=== PATIENT | male | born 1995 | race Caucasian/White ===

== ENCOUNTER 2019-03-23 04:17 | Emergency (ER) | payer OTHER ==
[2019-03-23] MEDS ORDERED: Cyclobenzaprine 10 MG Tab PO ONE (04:46)
[2019-03-23] MEDS ORDERED: Ibuprofen 600 MG Tab PO ONE (04:46)
--- NOTE | 2019-03-23 04:53 | EDM.PDOC ---
ED HPI GENERAL MEDICAL PROBLEM - General Chief Complaint: General Stated Complaint: face and neck spasms, pain Time Seen by Provider: 03/23/19 04:37 Source of Information: Reports: Patient, Family (parents) History Limitations: Reports: No Limitations - History of Present Illness INITIAL COMMENTS - FREE TEXT/NARRATIVE: Patient presents with neck spasms and head turned to right. He says this started an hour ago. He had been playing video games last evening and had some marijuana. He takes Latuda for bipolar depression. He tried Xanax for this neck spasm but no relief. Treatments ETHICS INSTRUCTOR: Reports: Other (see below) Other Treatments ETHICS INSTRUCTOR: xanax - Related Data Allergies Allergy/AdvReac Type Severity Reaction Status Date / Time sertraline [From Zoloft] Allergy Insomnia Verified 05/19/16 09:27 venlafaxine [From Effexor] Allergy Insomnia Verified 05/19/16 09:27 Home Meds: Home Meds Multivitamin [Multivitamins] 1 tab PO DAILY 08/03/14 [History] ALPRAZolam [Alprazolam] 1 mg PO BID 04/22/16 [History] Escitalopram [Lexapro] 10 mg PO DAILY 04/22/16 [History] OXcarbazepine [Trileptal] 900 mg PO BID 04/22/16 [History] Past Medical History HEENT History: Reports: Impaired Vision, Other (See Below) Other HEENT History: wears glasses Cardiovascular History: Reports: None Respiratory History: Reports: None Gastrointestinal History: Reports: GERD Genitourinary History: Reports: None Musculoskeletal History: Reports: None Neurological History: Reports: Head Trauma Psychiatric History: Reports: Anxiety, Bipolar, Depression, Emotional Problems, Mood Swings, Panic Attack, Suicidal Ideation Endocrine/Metabolic History: Reports: None Hematologic History: Reports: None Immunologic History: Reports: None Oncologic (Cancer) History: Reports: None Dermatologic History: Reports: None - Infectious Disease History Infectious Disease History: Reports: None - Past Surgical History Head Surgeries/Procedures: Reports: None HEENT Surgical History: Reports: Oral Surgery Cardiovascular Surgical History: Reports: None Respiratory Surgical History: Reports: None GI Surgical History: Reports: None Male Surgical History: Reports: None Endocrine Surgical History: Reports: None Neurological Surgical History: Reports: None Musculoskeletal Surgical History: Reports: Other (See Below) Other Musculoskeletal Surgeries/Procedures:: broken arm Oncologic Surgical History: Reports: None Dermatological Surgical History: Reports: None Social & Family History - Family History Family Medical History: Noncontributory - Tobacco Use Smoking Status *Q: Current Every Day Smoker Years of Tobacco use: 5 Packs/Tins Daily: 0.5 Used Tobacco, but Quit: No Second Hand Smoke Exposure: No - Caffeine Use Caffeine Use: Reports: Coffee, Energy Drinks, Soda - Alcohol Use Days Per Week of Alcohol Use: 3 Number of Drinks Per Day: 2 Total Drinks Per Week: 6 - Recreational Drug Use Recreational Drug Use: Yes Drug Use in Last 12 Months: Yes Recreational Drug Type: Reports: Marijuana/Hashish Recreational Drug Use Frequency: Daily Recreational Drug Last Use: today ED ROS GENERAL - Review of Systems Review Of Systems: See Below Constitutional: Denies: Fever, Chills, Malaise, Weakness HEENT: Denies: Dental Pain, Ear Discharge, Ear Pain, Hearing Loss, Throat Pain, Vision Change Respiratory: Denies: Shortness of Breath, Cough Cardiovascular: Denies: Chest Pain, Lightheadedness, Syncope Endocrine: Reports: No Symptoms GI/Abdominal: Denies: Abdominal Pain, Nausea, Vomiting : Reports: No Symptoms Musculoskeletal: Reports: Neck Pain (only with the muscle spasms). Denies: Shoulder Pain, Arm Pain, Back Pain, Hand Pain, Leg Pain, Foot Pain Skin: Denies: Cyanosis, Jaundice, Mottled, Pallor, Diaphoresis Neurological: Denies: Confusion, Dizziness, Headache, Numbness, Seizure, Syncope , Trouble Speaking, Difficulty Walking Psychiatric: Reports: Anxiety. Denies: Agitation, Confusion ED EXAM, GENERAL - Physical Exam Exam: See Below Exam Limited By: No Limitations General Appearance: Alert, WD/WN, No Apparent Distress Eye Exam: Bilateral Eye: EOMI, Normal Inspection, PERRL Ears: Normal External Exam, Normal Canal, Hearing Grossly Normal, Other (TM scarring, chronic) Nose: Normal Inspection, No Blood Throat/Mouth: Normal Inspection, Normal Lips, Normal Teeth, Normal Gums, Normal Oropharynx, Normal Voice, No Airway Compromise Head: Atraumatic, Normocephalic Neck: Supple, Limited Range of Motion, Tender Lateral (slightly with palpation of muscle spasms on right ). No: Lymphadenopathy (L), Lymphadenopathy (R), Tender Midline Respiratory/Chest: No Respiratory Distress, Lungs Clear, Normal Breath Sounds, No Accessory Muscle Use Cardiovascular: Regular Rate, Rhythm, No Murmur Peripheral Pulses: 2+: Carotid (L), Carotid (R) GI/Abdominal: Normal Bowel Sounds, Soft, Non-Tender, No Organomegaly, No Distention, No Abnormal Bruit Back Exam: Normal Inspection, Full Range of Motion. No: Muscle Spasm, Paraspinal Tenderness, Vertebral Tenderness Extremities: Normal Inspection, Normal Range of Motion, Non-Tender, Normal Capillary Refill Neurological: Alert, Oriented, CN II-XII Intact, Normal Cognition, No Motor/ Sensory Deficits Psychiatric: Normal Affect, Anxious Skin Exam: Warm, Dry, Intact, Normal Color, No Rash Course - Vital Signs Last Recorded V/S: Last Vital Signs Temp 97.4 F 03/23/19 04:24 Pulse 108 H 03/23/19 04:24 Resp 18 03/23/19 04:24 BP 159/96 H 03/23/19 04:24 Pulse Ox 97 03/23/19 04:24 - Orders/Labs/Meds Orders: Active Orders 24 hr Category Date Time Status Cyclobenzaprine [Flexeril] Med 03/23/19 04:46 Once 10 mg PO ONETIME ONE Ibuprofen [Motrin] Med 03/23/19 04:46 Once 600 mg PO ONETIME ONE - Re-Assessments/Exams Free Text/Narrative Re-Assessment/Exam: 03/23/19 04:53 Discussed findings, expectations and treatment with patient and parents. Flexeril and Ibuprofen were given. Patient is stable. 03/23/19 05:09 Advised Flexeril and Ibuprofen 400-600 mg every 8 hours for first 2 days then prn. Patient discharged to home in stable condition. Departure - Departure Time of Disposition: 04:54 Disposition: Home, Self-Care 01 Condition: Good Clinical Impression: Torticollis, acute - Discharge Information Instructions: Acute Torticollis, Adult, Neck Exercises Additional Instructions: 1. Drink 8 cups of water daily. 2. Take the muscle relaxant (cyclobenzaprine) and Ibuprofen as directed. 3. Follow up with your PCP if this isn't improving in 3 days. 4. Recheck sooner if worsening. - My Orders Last 24 Hours: My Active Orders 03/23/19 04:46 Cyclobenzaprine [Flexeril] 10 mg PO ONETIME ONE Ibuprofen [Motrin] 600 mg PO ONETIME ONE - Assessment/Plan Last 24 Hours: My Active Orders 03/23/19 04:46 Cyclobenzaprine [Flexeril] 10 mg PO ONETIME ONE Ibuprofen [Motrin] 600 mg PO ONETIME ONE
[2019-03-23 05:01] VITALS: BP 129/68; PULSE 98
== END 2019-03-23 05:10 | disposition home or self-care (01) ==
LOC: KA.ED 04:17
DX: M43.6 Torticollis (principal); F41.9 Anxiety disorder, unspecified; F32.9 Major depressive disorder, single episode, unspecified; K21.9 Gastro-esophageal reflux disease without esophagitis; F17.210 Nicotine dependence, cigarettes, uncomplicated; Z88.8 Allergy status to other drugs, medicaments and biological substances; Z79.899 Other long term (current) drug therapy
CPT/HCPCS: 99283; A9270

== ENCOUNTER 2023-03-09 07:29 | Emergency (ER) | payer BC ==
[2023-03-09 08:56] VITALS: BP 137/87; PULSE 99
== END 2023-03-09 09:04 | disposition home or self-care (01) ==
LOC: KA.ED 07:29
DX: K59.00 Constipation, unspecified (principal); F17.210 Nicotine dependence, cigarettes, uncomplicated; Z88.8 Allergy status to other drugs, medicaments and biological substances
CPT/HCPCS: 74021; 99284